=== PATIENT | female | born 1965 | race African-American/Black ===

== ENCOUNTER 2017-07-15 23:09 | Inpatient (IN) | payer OTHER ==
[~2017-07-15] VITALS: Ht 172.7 cm; Wt 164.1 kg
[~2017-07-15 23:09] MED LIST: ALBU8.5H IH; ASPI-556 PO; ATOR20TA86 PO; CARV12 PO; COMBIH IH; FLUT1DIS IH; HYDR2TAB5 PO; INSLAN SQ; INSNOV SQ; IPRAHFA IH; LISI-662 PO; NITR0.4T SL; RANO500T3 PO
[2017-07-15 23:42] LABS: GLUCOSE,POINT OF CARE 262 MG/DL (70-110)
[2017-07-15 23:46] LABS: BASOPHILS % (AUTO) 0.4 % (0.0-2.0); EOSINOPHILS % (AUTO) 2.8 % (1.0-6.0); HEMATOCRIT 35.2 % (36-46); HEMOGLOBIN 11.5 g/dL (12.0-16.0); LYMPHOCYTES # (AUTO) 1.2 K/uL (1.0-4.8); LYMPHOCYTES % (AUTO) 9.8 % (22.0-44.0); MEAN CORPUSCULAR HEMOGLOBIN 24.2 pg (26.0-34.0); MEAN CORPUSCULAR HGB CONC 32.7 G/dL (31.0-37.0); MEAN CORPUSCULAR VOLUME 74 fL (80-100); MONOCYTES # (AUTO) 0.9 K/uL (0.1-1.0); MONOCYTES % (AUTO) 7.5 % (2.0-9.0); NEUTROPHILS # (AUTO) 9.6 K/uL (1.8-7.7); NEUTROPHILS % (AUTO) 79.5 % (40.0-70.0); PLATELET COUNT (AUTO) 342 K/uL (150-450); RED BLOOD CELL COUNT(AUTO) 4.75 MIL/uL (4.00-5.20); RED CELL DISTRIBUTION WIDTH 17.1 % (11.5-14.5); WHITE BLOOD COUNT (AUTO) 12.1 K/uL (4.5-11.0)
[2017-07-15 23:56] LABS: ANION GAP 9 mmol/L (8-16); CALCIUM, TOTAL 9.6 mg/dL (8.8-10.5); CARBON DIOXIDE 29 mmol/L (22-29); CHLORIDE 104 mmol/L (98-107); CREATININE 1.47 mg/dL (0.60-1.30); GLOMERULAR FILTR. RATE CALC 45 mL/min (>60); POTASSIUM 3.9 mmol/L (3.5-5.1); SODIUM SERUM 142 mmol/L (136-145); UREA NITROGEN, BLOOD 19 mg/dL (7-18)
[2017-07-16] MEDS ORDERED: NITROGLYCERIN 2% (1 GM=INCH) PACKET TP ONE
[2017-07-16] MEDS ORDERED: HYDROmorphone 2 MG/ML SYRINGE IVP ONE
[2017-07-16] MEDS ORDERED: ASPIRIN 81 MG CHEWABLE TABLET PO ONE
[2017-07-16 00:02] LABS: ALANINE AMINOTRANSFERASE 14 U/L (12-78); ALBUMIN 2.9 g/dL (3.4-5.0); ASPARTATE AMINOTRANSFERASE 5 U/L (15-37); BILIRUBIN,TOTAL 0.2 mg/dL (0.1-1.0); CREATINE KINASE, TOTAL 66 U/L (26-192); TOTAL PROTEIN, SERUM 7.1 g/dL (6.4-8.2)
[2017-07-16 00:05] LABS: B-TYPE NATRIURETIC PEPTIDE 152 pg/mL (0-100)
[2017-07-16 00:06] LABS: PROTHROMBIN TIME 10.5 SEC (9.4-11.6)
[2017-07-16 01:09] LABS: APPEARANCE,URINE CLEAR (CLEAR); GLUCOSE, URINE (UA) >=1000 mg/dL (NEGATIVE); KETONES,URINE NEGATIVE (NEGATIVE); LEUKOCYTE ESTERASE ,URINE NEGATIVE (NEGATIVE); OCCULT BLOOD,URINE NEGATIVE (NEGATIVE); PROTEIN,URINE TRACE (NEGATIVE)
[2017-07-16 01:11] LABS: ADD UA MICROSCOPIC YES
[2017-07-16] MEDS ORDERED: ONDANSETRON HCL 4 MG/2 ML VIAL IVP PRN (01:15)
[2017-07-16] MEDS ORDERED: 0.9% SODIUM CHLORIDE 10 ML SYRINGE IVP PRN (01:15)
[2017-07-16] MEDS ORDERED: ACETAMINOPHEN 325 MG TABLET PO PRN ×2 (01:15→10:15)
[2017-07-16 01:23] LABS: RBC,URINE 0-2 /HPF (0-2); SQUAMOUS EPITHELIAL CELL,UR Few /LPF (None Seen); WBC,URINE 0-2 /HPF (0-5)
[2017-07-16 02:28] VITALS: BP 134/81
[2017-07-16] MEDS ORDERED: INSLAN SQ (02:42)
[2017-07-16] MEDS ORDERED: ATOR40TA28 PO (02:43)
[2017-07-16] MEDS ORDERED: ATOR20TA86 PO (02:43)
[2017-07-16] MEDS ORDERED: HYDROmorphone 2 MG/ML SYRINGE IVP PRN (03:30)
[2017-07-16] MEDS ORDERED: DEXTROSE 50%-WATER 25 GM/50 ML SYRINGE IVP PRN (03:30)
[2017-07-16] MEDS: HYDROmorphone 2 MG/ML SYRINGE IVP PRN ×5 (03:55→22:14)
[2017-07-16 04:30] LABS: RBC MORPHOLOGY COMMENT ABNORMAL RBC MORPH
[2017-07-16 05:06] VITALS: BP 130/84
[2017-07-16] MEDS: INSULIN ASPART 100 UNITS/ML SQ PRN ×4 (06:29→20:39)
[2017-07-16 07:46] VITALS: BP 126/79
[2017-07-16] MEDS: INSULIN GLARGINE,HUM.REC.ANLOG 100 UNITS/ML SQ SCH ×2 (08:20→20:38)
[2017-07-16] MEDS ORDERED: ALBUTEROL SULFATE 2.5 MG/0.5 ML NEB SOLUTION NEB PRN (10:15)
[2017-07-16] MEDS ORDERED: MAGNESIUM HYDROXIDE SUSPENSION 30 ML UDCUP PO PRN (10:15)
[2017-07-16] MEDS ORDERED: BISACODYL 10 MG RECTAL RECTAL SUPPOSITORY PR PRN (10:15)
[2017-07-16 10:27] LABS: GLUCOSE COMMENT 1 Received Meds; GLUCOSE,POINT OF CARE 311 MG/DL (70-110)
[2017-07-16 11:46] VITALS: BP 145/89
[2017-07-16] MEDS: TICAGRELOR 90 MG TABLET PO SCH ×2 (12:09→20:36)
[2017-07-16] MEDS: CARVEDILOL 6.25 MG TABLET PO SCH ×2 (12:09→20:36)
[2017-07-16 13:57] LABS: GLUCOSE COMMENT 1 Received Meds; GLUCOSE,POINT OF CARE 340 MG/DL (70-110)
[2017-07-16 15:33] VITALS: BP 101/59
[2017-07-16 20:33] VITALS: BP 124/78
[2017-07-16] MEDS: DOCUSATE SODIUM 100 MG CAPSULE PO SCH (20:36)
[2017-07-16] MEDS: HEPARIN SODIUM,PORCINE 5,000 UNITS/ML VIAL SQ SCH (20:36)
[2017-07-16] MEDS ORDERED: ATORVASTATIN CALCIUM 40 MG TABLET PO SCH (21:00)
[2017-07-17] MEDS ORDERED: 0.9% SODIUM CHLORIDE 5 ML NEB SOLUTION NEB ONE (00:50)
[2017-07-17 00:54] VITALS: BP 118/74
[2017-07-17 02:27] LABS: GLUCOSE COMMENT 1 Received Meds; GLUCOSE,POINT OF CARE 267 MG/DL (70-110)
[2017-07-17 02:32] LABS: GLUCOSE COMMENT 1 Received Meds; GLUCOSE,POINT OF CARE 256 MG/DL (70-110)
[2017-07-17] MEDS: HYDROmorphone 2 MG/ML SYRINGE IVP PRN ×3 (03:15→12:47)
[2017-07-17] MEDS: INSULIN ASPART 100 UNITS/ML SQ PRN ×2 (06:02→12:08)
[2017-07-17 06:42] LABS: BASOPHILS % (AUTO) 0.3 % (0.0-2.0); HEMATOCRIT 35.5 % (36-46); HEMOGLOBIN 11.5 g/dL (12.0-16.0); LYMPHOCYTES # (AUTO) 1.2 K/uL (1.0-4.8); LYMPHOCYTES % (AUTO) 9.6 % (22.0-44.0); MEAN CORPUSCULAR HEMOGLOBIN 24.2 pg (26.0-34.0); MEAN CORPUSCULAR HGB CONC 32.5 G/dL (31.0-37.0); MEAN CORPUSCULAR VOLUME 75 fL (80-100); MONOCYTES # (AUTO) 0.6 K/uL (0.1-1.0); MONOCYTES % (AUTO) 4.5 % (2.0-9.0); NEUTROPHILS # (AUTO) 10.6 K/uL (1.8-7.7); NEUTROPHILS % (AUTO) 82.6 % (40.0-70.0); PLATELET COUNT (AUTO) 347 K/uL (150-450); RED BLOOD CELL COUNT(AUTO) 4.75 MIL/uL (4.00-5.20); RED CELL DISTRIBUTION WIDTH 18.1 % (11.5-14.5); WHITE BLOOD COUNT (AUTO) 12.9 K/uL (4.5-11.0)
[2017-07-17 06:49] LABS: CALCIUM, TOTAL 9.3 mg/dL (8.8-10.5); CREATININE 1.38 mg/dL (0.60-1.30); POTASSIUM 4.2 mmol/L (3.5-5.1)
[2017-07-17 07:21] VITALS: BP 101/60
[2017-07-17] MEDS: HEPARIN SODIUM,PORCINE 5,000 UNITS/ML VIAL SQ SCH (08:01)
[2017-07-17] MEDS: INSULIN GLARGINE,HUM.REC.ANLOG 100 UNITS/ML SQ SCH (08:02)
[2017-07-17] MEDS: DOCUSATE SODIUM 100 MG CAPSULE PO SCH (08:11)
[2017-07-17] MEDS: TICAGRELOR 90 MG TABLET PO SCH (08:13)
[2017-07-17 08:23] LABS: RBC MORPHOLOGY COMMENT ABNORMAL RBC MORPH
[2017-07-17] MEDS ORDERED: LISINOPRIL 5 MG TABLET PO SCH (09:00)
[2017-07-17] MEDS ORDERED: FUROSEMIDE 40 MG TABLET PO SCH (09:00)
[2017-07-17] MEDS ORDERED: PANTOPRAZOLE SODIUM 40 MG DR TABLET PO SCH (09:00)
[2017-07-17] MEDS ORDERED: ASPIRIN 81 MG CHEWABLE TABLET PO SCH (09:00)
[2017-07-17] MEDS: CARVEDILOL 6.25 MG TABLET PO SCH (09:40)
[2017-07-17 09:43] VITALS: BP 111/69
[2017-07-17] MEDS ORDERED: CARV25 PO (10:39)
[2017-07-17 11:15] VITALS: BP 122/81
[2017-07-17 13:45] VITALS: BP 130/74
[2017-07-17 16:27] LABS: GLUCOSE COMMENT 1 Received Meds; GLUCOSE,POINT OF CARE 196 MG/DL (70-110)
[2017-07-17 16:32] LABS: GLUCOSE COMMENT 1 Received Meds; GLUCOSE,POINT OF CARE 208 MG/DL (70-110)
[2017-07-17] MEDS ORDERED: OXYGEN THERAPY IH SCH (20:00)
== END 2017-07-17 15:15 | disposition home or self-care (01) | DRG 303 ==
LOC: EMS 23:10 → 5S 07-16 01:10
PROVIDERS: ADMIT Internal Medicine; ATTEND Internal Medicine
DX: I25.10 Atherosclerotic heart disease of native coronary artery without angina pectoris (principal); E11.22 Type 2 diabetes mellitus with diabetic chronic kidney disease; E44.0 Moderate protein-calorie malnutrition; N18.3 Chronic kidney disease, stage 3 (moderate); Z68.43 Body mass index [BMI] 50.0-59.9, adult; R00.2 Palpitations; G47.30 Sleep apnea, unspecified; E66.01 Morbid (severe) obesity due to excess calories; G43.909 Migraine, unspecified, not intractable, without status migrainosus; E78.5 Hyperlipidemia, unspecified; I12.9 Hypertensive chronic kidney disease with stage 1 through stage 4 chronic kidney disease, or unspecified chronic kidney disease; Z95.5 Presence of coronary angioplasty implant and graft; J45.909 Unspecified asthma, uncomplicated; Z79.4 Long term (current) use of insulin; Z88.6 Allergy status to analgesic agent; Z88.8 Allergy status to other drugs, medicaments and biological substances; Z79.899 Other long term (current) drug therapy; Z79.82 Long term (current) use of aspirin
CPT/HCPCS: 82962; 93005; 93306; 94640; 96374; 99285; J1170; J1644; J1815

== ENCOUNTER 2017-08-28 18:30 | Inpatient (IN) | payer OTHER ==
[~2017-08-28] VITALS: Ht 175.3 cm; Wt 161.1 kg
[~2017-08-28 18:30] MED LIST changes: -ALBU8.5H IH; +ALBU8.5H8 IH; -ATOR20TA86 PO; +ATOR40TA28 PO; -CARV12 PO; +CARV25 PO; -COMBIH IH; -HYDR2TAB5 PO; -IPRAHFA IH
[2017-08-28 18:47] LABS: GLUCOSE,POINT OF CARE 256 MG/DL (70-110)
[2017-08-28] MEDS ORDERED: KETOROLAC TROMETHAMINE 30 MG/ML VIAL IVP ONE (19:15)
[2017-08-28 19:50] LABS: BASOPHILS % (AUTO) 0.5 % (0.0-2.0); HEMATOCRIT 35.9 % (36-46); HEMOGLOBIN 11.6 g/dL (12.0-16.0); LYMPHOCYTES # (AUTO) 1.2 K/uL (1.0-4.8); LYMPHOCYTES % (AUTO) 10.6 % (22.0-44.0); MEAN CORPUSCULAR HGB CONC 32.3 G/dL (31.0-37.0); MEAN CORPUSCULAR VOLUME 74 fL (80-100); MONOCYTES # (AUTO) 0.5 K/uL (0.1-1.0); MONOCYTES % (AUTO) 4.8 % (2.0-9.0); NEUTROPHILS % (AUTO) 82.1 % (40.0-70.0); PLATELET COUNT (AUTO) 328 K/uL (150-450); RED BLOOD CELL COUNT(AUTO) 4.85 MIL/uL (4.00-5.20); RED CELL DISTRIBUTION WIDTH 19.7 % (11.5-14.5); WHITE BLOOD COUNT (AUTO) 10.9 K/uL (4.5-11.0)
[2017-08-28 19:51] LABS: ANION GAP 7 mmol/L (8-16); CALCIUM, TOTAL 8.8 mg/dL (8.8-10.5); CARBON DIOXIDE 29 mmol/L (22-29); CHLORIDE 101 mmol/L (98-107); CREATININE 1.31 mg/dL (0.60-1.30); GLOMERULAR FILTR. RATE CALC 52 mL/min (>60); POTASSIUM 3.9 mmol/L (3.5-5.1); SODIUM SERUM 137 mmol/L (136-145); UREA NITROGEN, BLOOD 12 mg/dL (7-18)
[2017-08-28 20:10] LABS: B-TYPE NATRIURETIC PEPTIDE 119 pg/mL (0-100)
[2017-08-28 20:15] LABS: ALANINE AMINOTRANSFERASE 20 U/L (12-78); ALBUMIN 3.1 g/dL (3.4-5.0); ASPARTATE AMINOTRANSFERASE 12 U/L (15-37); BILIRUBIN,TOTAL 0.3 mg/dL (0.1-1.0); CREATINE KINASE, TOTAL 101 U/L (26-192); TOTAL PROTEIN, SERUM 7.4 g/dL (6.4-8.2)
[2017-08-28] MEDS ORDERED: ACETAMINOPHEN 1000 MG/ISO-OSM 100 ML IV ONE (21:00)
[2017-08-28] MEDS ORDERED: ONDANSETRON HCL 4 MG/2 ML VIAL IVP PRN ×2 (21:00→21:15)
[2017-08-28] MEDS ORDERED: ACETAMINOPHEN 325 MG TABLET PO PRN ×2 (21:00→21:15)
[2017-08-28 21:03] LABS: RBC MORPHOLOGY COMMENT ABNORMAL RBC MORPH
[2017-08-28] MEDS ORDERED: DEXTROSE 50%-WATER 25 GM/50 ML SYRINGE IVP PRN (21:15)
[2017-08-28] MEDS ORDERED: BISACODYL 10 MG RECTAL RECTAL SUPPOSITORY PR PRN (21:15)
[2017-08-28] MEDS ORDERED: ALBUTEROL SULFATE 2.5 MG/0.5 ML NEB SOLUTION NEB PRN (21:15)
[2017-08-28] MEDS ORDERED: NITROGLYCERIN 0.4 MG SUBLINGUAL TABLET #25 SL PRN (21:15)
[2017-08-28] MEDS ORDERED: ZOLPIDEM TARTRATE 5 MG TABLET PO PRN (21:15)
[2017-08-28] MEDS ORDERED: IPRATROPIUM BROMIDE 0.5 MG/2.5 ML NEB SOLUTION NEB PRN (21:15)
[2017-08-28] MEDS ORDERED: MAGNESIUM HYDROXIDE SUSPENSION 30 ML UDCUP PO PRN (21:15)
[2017-08-28 22:39] VITALS: BP 127/77
[2017-08-29 04:39] VITALS: BP 124/79
[2017-08-29] MEDS: HYDROCODONE/ACETAMINOPHEN 5-325 MG TABLET PO PRN ×3 (06:00→23:32)
[2017-08-29 06:25] LABS: BASOPHILS % (AUTO) 0.2 % (0.0-2.0); EOSINOPHILS % (AUTO) 2.5 % (1.0-6.0); HEMATOCRIT 33.5 % (36-46); HEMOGLOBIN 10.9 g/dL (12.0-16.0); LYMPHOCYTES # (AUTO) 1.1 K/uL (1.0-4.8); LYMPHOCYTES % (AUTO) 12.4 % (22.0-44.0); MEAN CORPUSCULAR HEMOGLOBIN 24.2 pg (26.0-34.0); MEAN CORPUSCULAR HGB CONC 32.4 G/dL (31.0-37.0); MEAN CORPUSCULAR VOLUME 75 fL (80-100); MONOCYTES # (AUTO) 0.6 K/uL (0.1-1.0); NEUTROPHILS # (AUTO) 7.3 K/uL (1.8-7.7); NEUTROPHILS % (AUTO) 78.9 % (40.0-70.0); PLATELET COUNT (AUTO) 289 K/uL (150-450); RED BLOOD CELL COUNT(AUTO) 4.48 MIL/uL (4.00-5.20); RED CELL DISTRIBUTION WIDTH 19.7 % (11.5-14.5); WHITE BLOOD COUNT (AUTO) 9.2 K/uL (4.5-11.0)
[2017-08-29 06:49] LABS: ALBUMIN 2.7 g/dL (3.4-5.0); BILIRUBIN,TOTAL 0.2 mg/dL (0.1-1.0); CALCIUM, TOTAL 8.5 mg/dL (8.8-10.5); CREATININE 1.61 mg/dL (0.60-1.30); MAGNESIUM 1.8 mg/dL (1.80-2.40); PHOSPHORUS 4.5 mg/dL (2.5-4.9); POTASSIUM 3.9 mmol/L (3.5-5.1); TOTAL PROTEIN, SERUM 6.7 g/dL (6.4-8.2)
[2017-08-29 06:51] LABS: HEMOGLOBIN A1C 10.9 % (4.5-6.2)
[2017-08-29] MEDS: INSULIN ASPART 100 UNITS/ML SQ PRN ×4 (06:55→20:23)
[2017-08-29 07:40] VITALS: BP 148/85
[2017-08-29] MEDS: ASPIRIN 81 MG EC TABLET PO SCH (09:08)
[2017-08-29] MEDS: PANTOPRAZOLE SODIUM 40 MG DR TABLET PO SCH (09:08)
[2017-08-29] MEDS: LISINOPRIL 20 MG TABLET PO SCH (09:08)
[2017-08-29] MEDS: CARVEDILOL 25 MG TABLET PO SCH ×2 (09:08→20:10)
[2017-08-29] MEDS: HEPARIN SODIUM,PORCINE 5,000 UNITS/ML VIAL SQ SCH ×2 (09:09→20:11)
[2017-08-29] MEDS: RANOLAZINE 500 MG SR TABLET PO SCH ×2 (09:09→20:10)
[2017-08-29] MEDS: INSULIN DETEMIR 100 UNITS/ML SQ SCH ×2 (09:11→20:17)
[2017-08-29 09:58] LABS: GLUCOSE COMMENT 1 Received Meds; GLUCOSE,POINT OF CARE 459 MG/DL (70-110)
[2017-08-29 10:18] LABS: RBC MORPHOLOGY COMMENT ABNORMAL RBC MORPH
[2017-08-29 11:49] VITALS: BP 126/74
[2017-08-29 13:28] LABS: GLUCOSE,POINT OF CARE 389 MG/DL (70-110)
[2017-08-29 15:41] VITALS: BP 128/74
[2017-08-29] MEDS: MethylPREDNISolone SOD SUCC 125 MG/2 ML VIAL IVP SCH ×2 (18:28→23:32)
[2017-08-29 19:47] VITALS: BP 142/90
[2017-08-29] MEDS: HYDROmorphone 2 MG/ML SYRINGE IVP PRN (20:12)
[2017-08-29] MEDS ORDERED: ATORVASTATIN CALCIUM 40 MG TABLET PO SCH (21:00)
[2017-08-29] MEDS: ALBUTEROL SULFATE 2.5 MG/0.5 ML NEB SOLUTION NEB SCH (21:05)
[2017-08-29] MEDS ORDERED: 0.9% SODIUM CHLORIDE 5 ML NEB SOLUTION NEB ONE (21:07)
[2017-08-29 23:23] VITALS: BP 136/80
[2017-08-30] MEDS ORDERED: 0.9% SODIUM CHLORIDE 5 ML NEB SOLUTION NEB ONE ×4 (00:18→15:16)
[2017-08-30] MEDS: ALBUTEROL SULFATE 2.5 MG/0.5 ML NEB SOLUTION NEB SCH ×4 (00:21→11:48)
[2017-08-30] MEDS: HYDROmorphone 2 MG/ML SYRINGE IVP PRN ×3 (02:03→14:36)
[2017-08-30 02:17] LABS: GLUCOSE COMMENT 1 Received Meds; GLUCOSE,POINT OF CARE 246 MG/DL (70-110)
[2017-08-30 02:17] LABS: GLUCOSE COMMENT 1 Received Meds; GLUCOSE,POINT OF CARE 276 MG/DL (70-110)
[2017-08-30 04:29] VITALS: BP 137/90
[2017-08-30] MEDS: HYDROCODONE/ACETAMINOPHEN 5-325 MG TABLET PO PRN (06:25)
[2017-08-30] MEDS: MethylPREDNISolone SOD SUCC 125 MG/2 ML VIAL IVP SCH ×2 (06:25→12:05)
[2017-08-30] MEDS: INSULIN ASPART 100 UNITS/ML SQ PRN ×2 (06:32→11:47)
[2017-08-30 07:18] VITALS: BP 132/76
[2017-08-30] MEDS ORDERED: OXYGEN THERAPY IH SCH (08:00)
[2017-08-30] MEDS ORDERED: TICAGRELOR 90 MG TABLET PO SCH (09:15)
[2017-08-30] MEDS ORDERED: GABAPENTIN 300 MG CAPSULE PO SCH (09:15)
[2017-08-30] MEDS: PANTOPRAZOLE SODIUM 40 MG DR TABLET PO SCH (09:19)
[2017-08-30] MEDS: RANOLAZINE 500 MG SR TABLET PO SCH (09:19)
[2017-08-30] MEDS: ASPIRIN 81 MG EC TABLET PO SCH (09:19)
[2017-08-30] MEDS: LISINOPRIL 20 MG TABLET PO SCH (09:19)
[2017-08-30] MEDS: CARVEDILOL 25 MG TABLET PO SCH (09:19)
[2017-08-30] MEDS: INSULIN DETEMIR 100 UNITS/ML SQ SCH (09:21)
[2017-08-30 11:31] VITALS: BP 137/86
[2017-08-30] MEDS ORDERED: PredniSONE 20 MG TABLET PO ONE (15:00)
[2017-08-30] MEDS ORDERED: PRED20 PO (15:06)
[2017-08-30 20:12] LABS: GLUCOSE COMMENT 1 Doctor Notified; GLUCOSE COMMENT 2 Received Meds; GLUCOSE,POINT OF CARE 507 MG/DL (70-110)
[2017-08-30 20:28] LABS: GLUCOSE COMMENT 1 Received Meds; GLUCOSE,POINT OF CARE 491 MG/DL (70-110)
[2017-08-30 20:28] LABS: GLUCOSE COMMENT 1 Received Meds; GLUCOSE,POINT OF CARE 317 MG/DL (70-110)
== END 2017-08-30 15:30 | disposition home or self-care (01) | DRG 74 ==
LOC: EMS 18:31 → 5S 21:00 → 5N 22:30
PROVIDERS: ADMIT Internal Medicine; ATTEND Internal Medicine
DX: G90.8 Other disorders of autonomic nervous system (principal); E11.65 Type 2 diabetes mellitus with hyperglycemia; I10 Essential (primary) hypertension; Z68.43 Body mass index [BMI] 50.0-59.9, adult; R55 Syncope and collapse; W19.XXXA Unspecified fall, initial encounter; I25.10 Atherosclerotic heart disease of native coronary artery without angina pectoris; R07.9 Chest pain, unspecified; E66.01 Morbid (severe) obesity due to excess calories; J44.9 Chronic obstructive pulmonary disease, unspecified; G43.909 Migraine, unspecified, not intractable, without status migrainosus; M25.512 Pain in left shoulder; Z88.5 Allergy status to narcotic agent; Z88.8 Allergy status to other drugs, medicaments and biological substances; Z79.4 Long term (current) use of insulin; Z79.899 Other long term (current) drug therapy; Z79.82 Long term (current) use of aspirin; Y93.89 Activity, other specified; Y92.89 Other specified places as the place of occurrence of the external cause; Y99.8 Other external cause status; S46.912A Strain of unspecified muscle, fascia and tendon at shoulder and upper arm level, left arm, initial encounter
CPT/HCPCS: 70450; 82962; 83036; 83735; 84100; 87081; 93005; 93306; 93880; 94640; 96365; 96375; 99285; J0131; J1170; J1644; J1885; J2930

== ENCOUNTER 2017-09-11 19:25 | Inpatient (IN) | payer OTHER ==
[~2017-09-11] VITALS: Ht 172.7 cm; Wt 158.1 kg
[~2017-09-11 19:25] MED LIST changes: +PRED20 PO
[2017-09-11 20:08] LABS: BASOPHILS # (AUTO) 0.03 K/uL (0.00-0.20); BASOPHILS % (AUTO) 0.2 % (0.0-2.0); EOSINOPHILS # (AUTO) 0.21 K/uL (0.00-0.70); EOSINOPHILS % (AUTO) 1.43 % (1.0-6.0); HEMATOCRIT 36.6 % (36-46); HEMOGLOBIN 11.8 g/dL (12.0-16.0); LYMPHOCYTES # (AUTO) 1.6 K/uL (1.0-4.8); LYMPHOCYTES % (AUTO) 11.3 % (22.0-44.0); MEAN CORPUSCULAR HEMOGLOBIN 24.4 pg (26.0-34.0); MEAN CORPUSCULAR HGB CONC 32.4 G/dL (31.0-37.0); MEAN CORPUSCULAR VOLUME 75 fL (80-100); MONOCYTES # (AUTO) 0.7 K/uL (0.1-1.0); NEUTROPHILS # (AUTO) 11.8 K/uL (1.8-7.7); PLATELET COUNT (AUTO) 313 K/uL (150-450); RED BLOOD CELL COUNT(AUTO) 4.86 MIL/uL (4.00-5.20); RED CELL DISTRIBUTION WIDTH 21.7 % (11.5-14.5); WHITE BLOOD COUNT (AUTO) 14.4 K/uL (4.5-11.0)
[2017-09-11 20:18] LABS: ANION GAP 9 mmol/L (8-16); CALCIUM, TOTAL 9.4 mg/dL (8.8-10.5); CARBON DIOXIDE 27 mmol/L (22-29); CHLORIDE 102 mmol/L (98-107); CREATININE 1.47 mg/dL (0.60-1.30); GLOMERULAR FILTR. RATE CALC 45 mL/min (>60); POTASSIUM 3.7 mmol/L (3.5-5.1); SODIUM SERUM 138 mmol/L (136-145); UREA NITROGEN, BLOOD 16 mg/dL (7-18)
[2017-09-11] MEDS ORDERED: NITROGLYCERIN 2% (1 GM=INCH) PACKET TP ONE (20:30)
[2017-09-11] MEDS ORDERED: ASPIRIN 325 MG TABLET PO ONE (20:30)
[2017-09-11 20:36] LABS: B-TYPE NATRIURETIC PEPTIDE 71 pg/mL (0-100)
[2017-09-11 20:39] LABS: RBC MORPHOLOGY COMMENT ABNORMAL RBC MORPH
[2017-09-11 20:44] LABS: ALANINE AMINOTRANSFERASE 22 U/L (12-78); ALBUMIN 3.1 g/dL (3.4-5.0); ASPARTATE AMINOTRANSFERASE 17 U/L (15-37); BILIRUBIN,TOTAL 0.4 mg/dL (0.1-1.0); CREATINE KINASE, TOTAL 95 U/L (26-192); TOTAL PROTEIN, SERUM 7.3 g/dL (6.4-8.2)
[2017-09-11] MEDS ORDERED: ONDANSETRON HCL 4 MG/2 ML VIAL IVP ONE (22:00)
[2017-09-11] MEDS ORDERED: HYDROmorphone 2 MG/ML SYRINGE IVP ONE (22:00)
[2017-09-11] MEDS ORDERED: ONDANSETRON HCL 4 MG/2 ML VIAL IVP PRN ×2 (22:15→23:30)
[2017-09-11] MEDS ORDERED: ACETAMINOPHEN 325 MG TABLET PO PRN ×2 (22:15→23:30)
[2017-09-11] MEDS ORDERED: 0.9% SODIUM CHLORIDE 10 ML SYRINGE IVP PRN (22:15)
[2017-09-11 23:04] VITALS: BP 139/91
[2017-09-11] MEDS ORDERED: MAGNESIUM HYDROXIDE SUSPENSION 30 ML UDCUP PO PRN (23:30)
[2017-09-11] MEDS ORDERED: IPRATROPIUM BROMIDE 0.5 MG/2.5 ML NEB SOLUTION NEB PRN (23:30)
[2017-09-11] MEDS ORDERED: ZOLPIDEM TARTRATE 5 MG TABLET PO PRN (23:30)
[2017-09-11] MEDS ORDERED: DEXTROSE 50%-WATER 25 GM/50 ML SYRINGE IVP PRN (23:30)
[2017-09-11] MEDS ORDERED: ALBUTEROL SULFATE 2.5 MG/0.5 ML NEB SOLUTION NEB PRN (23:30)
[2017-09-11] MEDS ORDERED: BISACODYL 10 MG RECTAL RECTAL SUPPOSITORY PR PRN (23:30)
[2017-09-12] VITALS (8 sets, daily range): BP systolic 98–136; BP diastolic 57–87
[2017-09-12] MEDS: HYDROmorphone 2 MG/ML SYRINGE IVP PRN ×5 (00:38→20:06)
[2017-09-12] MEDS: NITROGLYCERIN 2% (1 GM=INCH) PACKET TP SCH ×4 (00:40→18:19)
[2017-09-12 06:33] LABS: GLUCOSE COMMENT 1 Received Meds; GLUCOSE,POINT OF CARE 284 MG/DL (70-110)
[2017-09-12 06:41] LABS: BILIRUBIN,TOTAL 0.3 mg/dL (0.1-1.0); CHOL/HDL RATIO 4.5 (3.9-5.7); CREATININE 1.64 mg/dL (0.60-1.30); PHOSPHORUS 5.1 mg/dL (2.5-4.9)
[2017-09-12 06:44] LABS: HEMOGLOBIN A1C 11.8 % (4.5-6.2)
[2017-09-12] MEDS: INSULIN ASPART 100 UNITS/ML SQ PRN ×4 (06:48→21:23)
[2017-09-12 07:10] LABS: THYROID STIMULATING HORMONE 3.99 uIU/mL (0.36-3.74)
[2017-09-12] MEDS ORDERED: INSULIN ASPART 100 UNITS/ML SQ SCH (07:30)
[2017-09-12 07:59] LABS: BASOPHILS % (AUTO) 0.1 % (0.0-2.0); EOSINOPHILS % (AUTO) 1.6 % (1.0-6.0); HEMATOCRIT 36.3 % (36-46); HEMOGLOBIN 11.7 g/dL (12.0-16.0); LYMPHOCYTES # (AUTO) 1.3 K/uL (1.0-4.8); LYMPHOCYTES % (AUTO) 12.3 % (22.0-44.0); MEAN CORPUSCULAR HEMOGLOBIN 24.5 pg (26.0-34.0); MEAN CORPUSCULAR HGB CONC 32.2 G/dL (31.0-37.0); MEAN CORPUSCULAR VOLUME 76 fL (80-100); MONOCYTES # (AUTO) 0.7 K/uL (0.1-1.0); MONOCYTES % (AUTO) 6.7 % (2.0-9.0); NEUTROPHILS # (AUTO) 8.7 K/uL (1.8-7.7); NEUTROPHILS % (AUTO) 79.3 % (40.0-70.0); PLATELET COUNT (AUTO) 322 K/uL (150-450); RED BLOOD CELL COUNT(AUTO) 4.78 MIL/uL (4.00-5.20); RED CELL DISTRIBUTION WIDTH 21.3 % (11.5-14.5)
[2017-09-12] MEDS: HEPARIN SODIUM,PORCINE 5,000 UNITS/ML VIAL SQ SCH ×2 (08:35→21:18)
[2017-09-12] MEDS: TICAGRELOR 90 MG TABLET PO SCH ×2 (08:36→21:17)
[2017-09-12] MEDS: CARVEDILOL 25 MG TABLET PO SCH ×2 (08:36→21:17)
[2017-09-12] MEDS: PANTOPRAZOLE SODIUM 40 MG DR TABLET PO SCH (08:36)
[2017-09-12] MEDS: ASPIRIN 81 MG EC TABLET PO SCH (08:37)
[2017-09-12] MEDS: RANOLAZINE 500 MG SR TABLET PO SCH ×2 (08:37→21:17)
[2017-09-12] MEDS: INSULIN DETEMIR 100 UNITS/ML SQ SCH ×2 (08:41→21:24)
[2017-09-12] MEDS ORDERED: LISINOPRIL 20 MG TABLET PO SCH (09:00)
[2017-09-12 10:07] LABS: RBC MORPHOLOGY COMMENT ABNORMAL RBC MORPH
[2017-09-12] MEDS ORDERED: PERFLUTREN PROTEIN-A MICROSPHERES 0.22 MG/ML 3 ML VIAL IVP ONE ×2 (14:30→16:31)
[2017-09-12] MEDS: ALBUTEROL SULFATE 2.5 MG/0.5 ML NEB SOLUTION NEB PRN ×2 (15:16→19:25)
[2017-09-12] MEDS: IPRATROPIUM BROMIDE 0.5 MG/2.5 ML NEB SOLUTION NEB PRN (19:25)
[2017-09-12] MEDS: OXYGEN THERAPY IH SCH (20:06)
[2017-09-12] MEDS: ATORVASTATIN CALCIUM 40 MG TABLET PO SCH (21:21)
[2017-09-13] VITALS (8 sets, daily range): BP systolic 100–122; BP diastolic 55–65
[2017-09-13 00:08] LABS: GLUCOSE COMMENT 1 Received Meds; GLUCOSE,POINT OF CARE 323 MG/DL (70-110)
[2017-09-13 00:13] LABS: GLUCOSE COMMENT 1 Received Meds; GLUCOSE,POINT OF CARE 228 MG/DL (70-110)
[2017-09-13 00:13] LABS: GLUCOSE COMMENT 1 Received Meds; GLUCOSE,POINT OF CARE 318 MG/DL (70-110)
[2017-09-13 00:14] LABS: GLUCOSE COMMENT 1 Received Meds; GLUCOSE,POINT OF CARE 186 MG/DL (70-110)
[2017-09-13] MEDS: NITROGLYCERIN 2% (1 GM=INCH) PACKET TP SCH ×5 (00:31→23:47)
[2017-09-13 00:37] LABS: GLUCOSE COMMENT 1 Received Meds; GLUCOSE,POINT OF CARE 286 MG/DL (70-110)
[2017-09-13] MEDS: IPRATROPIUM BROMIDE 0.5 MG/2.5 ML NEB SOLUTION NEB PRN (00:44)
[2017-09-13] MEDS: ALBUTEROL SULFATE 2.5 MG/0.5 ML NEB SOLUTION NEB PRN (00:44)
[2017-09-13] MEDS: HYDROmorphone 2 MG/ML SYRINGE IVP PRN ×5 (03:42→21:33)
[2017-09-13] MEDS: INSULIN ASPART 100 UNITS/ML SQ PRN ×4 (06:30→21:39)
[2017-09-13] MEDS: ASPIRIN 81 MG EC TABLET PO SCH (08:17)
[2017-09-13] MEDS: OXYGEN THERAPY IH SCH ×2 (08:17→20:44)
[2017-09-13] MEDS: PANTOPRAZOLE SODIUM 40 MG DR TABLET PO SCH (08:18)
[2017-09-13] MEDS: TICAGRELOR 90 MG TABLET PO SCH ×2 (08:18→20:43)
[2017-09-13] MEDS: RANOLAZINE 500 MG SR TABLET PO SCH ×2 (08:18→20:43)
[2017-09-13] MEDS: INSULIN DETEMIR 100 UNITS/ML SQ SCH ×2 (08:19→21:38)
[2017-09-13] MEDS: HEPARIN SODIUM,PORCINE 5,000 UNITS/ML VIAL SQ SCH ×2 (08:19→20:43)
[2017-09-13] MEDS: CARVEDILOL 25 MG TABLET PO SCH ×2 (09:42→20:42)
[2017-09-13] MEDS ORDERED: SESTAMIBI TC99M/UD ISOTOPE 1 EA INJ INJ ONE (12:00)
[2017-09-13 13:47] LABS: GLUCOSE COMMENT 1 Received Meds; GLUCOSE,POINT OF CARE 237 MG/DL (70-110)
[2017-09-13 15:22] LABS: APPEARANCE,URINE CLOUDY (CLEAR); GLUCOSE, URINE (UA) NEGATIVE (NEGATIVE); KETONES,URINE NEGATIVE (NEGATIVE); LEUKOCYTE ESTERASE ,URINE NEGATIVE (NEGATIVE); OCCULT BLOOD,URINE NEGATIVE (NEGATIVE); PROTEIN,URINE NEGATIVE (NEGATIVE)
[2017-09-13 15:23] LABS: ADD UA MICROSCOPIC NO
[2017-09-13] MEDS: MUPIROCIN CALCIUM 2% 22 GM OINTMENT NASAL SCH (20:42)
[2017-09-13] MEDS: ATORVASTATIN CALCIUM 40 MG TABLET PO SCH (20:43)
[2017-09-14] VITALS (7 sets, daily range): BP systolic 103–129; BP diastolic 59–68
[2017-09-14] MEDS: HYDROmorphone 2 MG/ML SYRINGE IVP PRN ×3 (02:48→10:41)
[2017-09-14 05:58] LABS: GLUCOSE COMMENT 1 Received Meds; GLUCOSE,POINT OF CARE 260 MG/DL (70-110)
[2017-09-14] MEDS: INSULIN ASPART 100 UNITS/ML SQ PRN ×3 (06:30→17:18)
[2017-09-14] MEDS: NITROGLYCERIN 2% (1 GM=INCH) PACKET TP SCH ×3 (06:37→17:15)
[2017-09-14] MEDS ORDERED: REGADENOSON 0.4 MG/5 ML PF SYRINGE IVP ONE ×2 (08:08→12:00)
[2017-09-14] MEDS ORDERED: AMINOPHYLLINE 25 MG/ML 10 ML VIAL IVP ONE (08:13)
[2017-09-14] MEDS ORDERED: SESTAMIBI TC99M/UD ISOTOPE 1 EA INJ INJ ONE (08:15)
[2017-09-14 08:40] LABS: ALBUMIN 2.9 g/dL (3.4-5.0); BILIRUBIN,TOTAL 0.4 mg/dL (0.1-1.0); CALCIUM, TOTAL 8.9 mg/dL (8.8-10.5); CREATININE 2.92 mg/dL (0.60-1.30); MAGNESIUM 2.3 mg/dL (1.80-2.40); POTASSIUM 4.9 mmol/L (3.5-5.1)
[2017-09-14] MEDS: ASPIRIN 81 MG EC TABLET PO SCH (08:40)
[2017-09-14] MEDS: HEPARIN SODIUM,PORCINE 5,000 UNITS/ML VIAL SQ SCH (08:41)
[2017-09-14] MEDS: RANOLAZINE 500 MG SR TABLET PO SCH (08:41)
[2017-09-14] MEDS: TICAGRELOR 90 MG TABLET PO SCH (08:41)
[2017-09-14] MEDS: CARVEDILOL 25 MG TABLET PO SCH (08:41)
[2017-09-14] MEDS: PANTOPRAZOLE SODIUM 40 MG DR TABLET PO SCH (08:41)
[2017-09-14 08:46] LABS: BASOPHILS % (AUTO) 0.2 % (0.0-2.0); EOSINOPHILS % (AUTO) 1.5 % (1.0-6.0); HEMATOCRIT 32.7 % (36-46); HEMOGLOBIN 10.7 g/dL (12.0-16.0); LYMPHOCYTES # (AUTO) 1.1 K/uL (1.0-4.8); LYMPHOCYTES % (AUTO) 9.2 % (22.0-44.0); MEAN CORPUSCULAR HGB CONC 32.8 G/dL (31.0-37.0); MEAN CORPUSCULAR VOLUME 76 fL (80-100); MONOCYTES # (AUTO) 0.7 K/uL (0.1-1.0); NEUTROPHILS % (AUTO) 83.1 % (40.0-70.0); PLATELET COUNT (AUTO) 295 K/uL (150-450); RED BLOOD CELL COUNT(AUTO) 4.28 MIL/uL (4.00-5.20); RED CELL DISTRIBUTION WIDTH 21.1 % (11.5-14.5)
[2017-09-14] MEDS: OXYGEN THERAPY IH SCH (10:07)
[2017-09-14] MEDS: MUPIROCIN CALCIUM 2% 22 GM OINTMENT NASAL SCH (10:09)
[2017-09-14] MEDS: INSULIN DETEMIR 100 UNITS/ML SQ SCH (10:09)
[2017-09-14 11:25] LABS: RBC MORPHOLOGY COMMENT ABNORMAL RBC MORPH
[2017-09-14 11:35] LABS: GLUCOSE COMMENT 1 Received Meds; GLUCOSE,POINT OF CARE 183 MG/DL (70-110)
[2017-09-14 11:35] LABS: GLUCOSE COMMENT 1 Received Meds; GLUCOSE,POINT OF CARE 208 MG/DL (70-110)
[2017-09-14 11:47] LABS: GLUCOSE COMMENT 1 Received Meds; GLUCOSE,POINT OF CARE 238 MG/DL (70-110)
[2017-09-14] MEDS ORDERED: AMINOPHYLLINE 25 MG/ML 10 ML VIAL ONE (12:00)
[2017-09-15 17:32] LABS: GLUCOSE COMMENT 1 Received Meds; GLUCOSE,POINT OF CARE 272 MG/DL (70-110)
[2017-09-16 20:13] LABS: GLUCOSE,POINT OF CARE 231 MG/DL (70-110)
[2017-09-16 20:13] LABS: GLUCOSE,POINT OF CARE 249 MG/DL (70-110)
== END 2017-09-14 20:30 | disposition home or self-care (01) | DRG 683 ==
LOC: EMS 19:27 → 5S 22:14
PROVIDERS: ADMIT Internal Medicine; ATTEND Internal Medicine
DX: N17.9 Acute kidney failure, unspecified (principal); I25.110 Atherosclerotic heart disease of native coronary artery with unstable angina pectoris; E11.22 Type 2 diabetes mellitus with diabetic chronic kidney disease; E44.0 Moderate protein-calorie malnutrition; I50.32 Chronic diastolic (congestive) heart failure; E11.65 Type 2 diabetes mellitus with hyperglycemia; E66.01 Morbid (severe) obesity due to excess calories; Z68.43 Body mass index [BMI] 50.0-59.9, adult; D64.9 Anemia, unspecified; J44.9 Chronic obstructive pulmonary disease, unspecified; I10 Essential (primary) hypertension; E78.5 Hyperlipidemia, unspecified; E55.9 Vitamin D deficiency, unspecified; G47.33 Obstructive sleep apnea (adult) (pediatric); I12.9 Hypertensive chronic kidney disease with stage 1 through stage 4 chronic kidney disease, or unspecified chronic kidney disease; I25.10 Atherosclerotic heart disease of native coronary artery without angina pectoris; N18.9 Chronic kidney disease, unspecified; Z79.4 Long term (current) use of insulin; I25.2 Old myocardial infarction; Z79.82 Long term (current) use of aspirin; Z95.5 Presence of coronary angioplasty implant and graft; Z22.322 Carrier or suspected carrier of Methicillin resistant Staphylococcus aureus; Z88.8 Allergy status to other drugs, medicaments and biological substances
CPT/HCPCS: 78452; 82306; 82962; 83036; 83735; 84100; 84443; 87081; 93005; 93017; 93306; 93308; 94640; 96374; 96375; 99285; A9500; J0280; J1170; J1644; J1815; J2405; J2785

== ENCOUNTER 2017-12-05 13:25 | Emergency (ER) | payer OTHER ==
[~2017-12-05] VITALS: Ht 172.7 cm; Wt 154.6 kg
[~2017-12-05 13:25] MED LIST changes: -PRED20 PO
[2017-12-05 13:47] LABS: GLUCOSE,POINT OF CARE 298 MG/DL (70-110)
[2017-12-05 17:18] VITALS: BP 156/77
[2017-12-05] MEDS ORDERED: CIPROFLOXACIN HCL 250 MG TABLET PO ONE (17:45)
[2017-12-05] MEDS ORDERED: HYDROCODONE/ACETAMINOPHEN 5-325 MG TABLET PO ONE (17:45)
[2017-12-05] MEDS ORDERED: PERTUSS(ACELL),DIPH,TET VAC/PF 0.5 ML VIAL IM ONE (17:45)
[2017-12-05] MEDS ORDERED: BACITRACIN 0.9 GM PACKET OINTMENT TP ONE (18:15)
== END 2017-12-05 18:39 | disposition home or self-care (01) ==
LOC: EMS 13:29
DX: S91.332A Puncture wound without foreign body, left foot, initial encounter (principal); I10 Essential (primary) hypertension; J45.909 Unspecified asthma, uncomplicated; G43.909 Migraine, unspecified, not intractable, without status migrainosus; I25.2 Old myocardial infarction; E11.9 Type 2 diabetes mellitus without complications; I25.10 Atherosclerotic heart disease of native coronary artery without angina pectoris; Z88.8 Allergy status to other drugs, medicaments and biological substances; W45.8XXA Other foreign body or object entering through skin, initial encounter; Y93.01 Activity, walking, marching and hiking; Y92.512 Supermarket, store or market as the place of occurrence of the external cause; Y99.8 Other external cause status
CPT/HCPCS: 82962; 90471; 90715; 99284

== ENCOUNTER 2018-01-08 09:35 | Day surgery (SDC) | payer OTHER ==
[~2018-01-08] VITALS: Ht 170.2 cm; Wt 159.1 kg
[~2018-01-08 09:35] MED LIST changes: +0.9% SODIUM CHLORIDE 10 ML SYRINGE IVP PRN; -CARV25 PO; -LISI-662 PO; +METOPROLOL TARTRATE 50 MG TABLET PO ONE
[2018-01-08] MEDS ORDERED: METOPROLOL TARTRATE 50 MG TABLET ONE (10:12)
[2018-01-08] MEDS ORDERED: TICA90TA PO (10:15)
[2018-01-08] MEDS ORDERED: INSLAN SQ ×2 (10:15)
[2018-01-08] MEDS ORDERED: FURO40 PO (10:15)
[2018-01-08] MEDS ORDERED: INSU100V SQ (10:15)
[2018-01-08] MEDS ORDERED: GABA-531 PO (10:15)
[2018-01-08] MEDS ORDERED: ADV250 IH (10:15)
[2018-01-08 10:25] LABS: CALCIUM, TOTAL 9.1 mg/dL (8.8-10.5); CREATININE 1.61 mg/dL (0.60-1.30); POTASSIUM 3.7 mmol/L (3.5-5.1)
[2018-01-08] MEDS ORDERED: METOPROLOL TARTRATE 5 MG/5 ML VIAL ONE ×5 (10:28→12:46)
[2018-01-08] MEDS ORDERED: NITROGLYCERIN 400 MCG/SUBLINGUAL SPRAY 4.9 GM BOTTLE SL ONE (10:28)
[2018-01-08] MEDS ORDERED: METOPROLOL TARTRATE 5 MG/5 ML VIAL IVP ONE ×5 (11:00→12:45)
[2018-01-08] MEDS ORDERED: 0.9% SODIUM CHLORIDE 10 ML SYRINGE IVP ONE ×3 (11:32→12:46)
[2018-01-08] MEDS ORDERED: ATOR20TA86 PO (11:38)
[2018-01-08] MEDS ORDERED: HYDROCODONE/ACETAMINOPHEN 10-325 MG TABLET PO ONE (12:45)
[2018-01-08] MEDS ORDERED: HYDROCODONE/ACETAMINOPHEN 10-325 MG TABLET ONE (12:48)
[2018-01-08] MEDS ORDERED: IOVERSOL 350 MG/ML 150 ML VIAL ONE (14:06)
== END 2018-01-08 15:45 | disposition home or self-care (01) ==
LOC: SURGERY 09:35 → EDSTATUS 11:00 → SURGERY 15:45
PROVIDERS: ATTEND Internal Medicine Cardiovascular Disease
DX: J98.09 Other diseases of bronchus, not elsewhere classified (principal); J98.11 Atelectasis; M47.814 Spondylosis without myelopathy or radiculopathy, thoracic region; I25.89 Other forms of chronic ischemic heart disease; I11.0 Hypertensive heart disease with heart failure; I50.22 Chronic systolic (congestive) heart failure; M17.0 Bilateral primary osteoarthritis of knee; M19.012 Primary osteoarthritis, left shoulder; M19.011 Primary osteoarthritis, right shoulder; I08.3 Combined rheumatic disorders of mitral, aortic and tricuspid valves; J44.9 Chronic obstructive pulmonary disease, unspecified; I25.10 Atherosclerotic heart disease of native coronary artery without angina pectoris; E11.9 Type 2 diabetes mellitus without complications; Z95.5 Presence of coronary angioplasty implant and graft; Z88.6 Allergy status to analgesic agent; Z88.8 Allergy status to other drugs, medicaments and biological substances; Z98.890 Other specified postprocedural states; Z79.4 Long term (current) use of insulin; Z79.01 Long term (current) use of anticoagulants; Z86.74 Personal history of sudden cardiac arrest; Z79.82 Long term (current) use of aspirin; Z79.899 Other long term (current) drug therapy
CPT/HCPCS: 36415; 75574; 80048; 93005; J3490; Q9967

== ENCOUNTER 2018-01-09 19:29 | Emergency (ER) | payer OTHER ==
[~2018-01-09] VITALS: Ht 172.7 cm; Wt 154.6 kg
[~2018-01-09 19:29] MED LIST changes: -0.9% SODIUM CHLORIDE 10 ML SYRINGE IVP PRN; +ADV250 IH; -ALBU8.5H8 IH; +ATOR20TA86 PO; -ATOR40TA28 PO; -FLUT1DIS IH; +FURO40 PO; +GABA-531 PO; -INSNOV SQ; +INSU100V SQ; -METOPROLOL TARTRATE 50 MG TABLET PO ONE; -NITR0.4T SL; -RANO500T3 PO; +TICA90TA PO
[2018-01-09 20:03] LABS: GLUCOSE,POINT OF CARE 206 MG/DL (70-110)
[2018-01-09] MEDS ORDERED: KETOROLAC TROMETHAMINE 60 MG/2 ML VIAL IM ONE (21:45)
[2018-01-09] MEDS ORDERED: HYDROCODONE/ACETAMINOPHEN 5-325 MG TABLET PO ONE (23:30)
[2018-01-09 23:48] VITALS: BP 133/81
== END 2018-01-09 23:52 | disposition home or self-care (01) ==
LOC: EMS 19:31
DX: S30.0XXA Contusion of lower back and pelvis, initial encounter (principal); M54.5 Low back pain; I25.2 Old myocardial infarction; E11.9 Type 2 diabetes mellitus without complications; J45.909 Unspecified asthma, uncomplicated; G43.909 Migraine, unspecified, not intractable, without status migrainosus; I10 Essential (primary) hypertension; Z88.8 Allergy status to other drugs, medicaments and biological substances; Z88.5 Allergy status to narcotic agent; Z79.4 Long term (current) use of insulin; X58.XXXA Exposure to other specified factors, initial encounter; Y93.89 Activity, other specified; Y92.89 Other specified places as the place of occurrence of the external cause; Y99.8 Other external cause status
CPT/HCPCS: 72100; 72220; 82962; 96372; 99284; J1885

== ENCOUNTER 2018-05-03 16:15 | Emergency (ER) | payer OTHER ==
[~2018-05-03] VITALS: Ht 172.7 cm; Wt 154.6 kg
[2018-05-03] MEDS ORDERED: ALBUTEROL SULFATE 2.5 MG/0.5 ML NEB SOLUTION NEB ONE (17:15)
[2018-05-03] MEDS ORDERED: IPRATROPIUM BROMIDE 0.5 MG/2.5 ML NEB SOLUTION NEB ONE (17:15)
[2018-05-03] MEDS ORDERED: FUROSEMIDE 40 MG/4 ML VIAL IVP ONE (17:15)
[2018-05-03 17:58] LABS: BASOPHILS % (AUTO) 0.6 % (0.0-2.0); EOSINOPHILS % (AUTO) 1.5 % (1.0-6.0); HEMATOCRIT 35.3 % (36-46); HEMOGLOBIN 11.9 g/dL (12.0-16.0); LYMPHOCYTES # (AUTO) 1.1 K/uL (1.0-4.8); LYMPHOCYTES % (AUTO) 9.4 % (22.0-44.0); MEAN CORPUSCULAR HEMOGLOBIN 26.9 pg (26.0-34.0); MEAN CORPUSCULAR HGB CONC 33.6 G/dL (31.0-37.0); MEAN CORPUSCULAR VOLUME 80 fL (80-100); MONOCYTES # (AUTO) 0.9 K/uL (0.1-1.0); NEUTROPHILS # (AUTO) 9.6 K/uL (1.8-7.7); NEUTROPHILS % (AUTO) 80.5 % (40.0-70.0); PLATELET COUNT (AUTO) 313 K/uL (150-450); RED BLOOD CELL COUNT(AUTO) 4.41 MIL/uL (4.00-5.20); RED CELL DISTRIBUTION WIDTH 18.8 % (11.5-14.5)
[2018-05-03 18:11] LABS: CALCIUM, TOTAL 8.5 mg/dL (8.8-10.5); CREATININE 1.86 mg/dL (0.60-1.30); POTASSIUM 3.5 mmol/L (3.5-5.1)
[2018-05-03 18:16] LABS: ALBUMIN 3.2 g/dL (3.4-5.0); BILIRUBIN,TOTAL 0.3 mg/dL (0.1-1.0); TOTAL PROTEIN, SERUM 7.9 g/dL (6.4-8.2)
[2018-05-03] MEDS ORDERED: INSULIN REGULAR, HUMAN 100 UNITS/ML IVP ONE (18:45)
[2018-05-03 18:58] VITALS: BP 150/76
== END 2018-05-03 19:29 | disposition left against medical advice (07) ==
LOC: EMS 16:23
DX: I11.0 Hypertensive heart disease with heart failure (principal); I50.9 Heart failure, unspecified; E11.65 Type 2 diabetes mellitus with hyperglycemia; R07.9 Chest pain, unspecified; I25.2 Old myocardial infarction; I25.10 Atherosclerotic heart disease of native coronary artery without angina pectoris; J45.909 Unspecified asthma, uncomplicated; Z88.5 Allergy status to narcotic agent; Z88.8 Allergy status to other drugs, medicaments and biological substances; Z79.4 Long term (current) use of insulin
CPT/HCPCS: 36415; 71045; 80053; 83880; 84484; 85025; 93005; 94640; 96374; 96375; 99285; J1815; J1940

== ENCOUNTER 2018-05-07 16:09 | Emergency (ER) | payer OTHER ==
[~2018-05-07] VITALS: Ht 172.7 cm; Wt 154.6 kg
[2018-05-07 18:27] LABS: BASOPHILS % (AUTO) 0.8 % (0.0-2.0); EOSINOPHILS % (AUTO) 2.4 % (1.0-6.0); HEMATOCRIT 34.1 % (36-46); HEMOGLOBIN 11.4 g/dL (12.0-16.0); LYMPHOCYTES # (AUTO) 1.1 K/uL (1.0-4.8); LYMPHOCYTES % (AUTO) 9.5 % (22.0-44.0); MEAN CORPUSCULAR HEMOGLOBIN 26.6 pg (26.0-34.0); MEAN CORPUSCULAR HGB CONC 33.3 G/dL (31.0-37.0); MEAN CORPUSCULAR VOLUME 80 fL (80-100); MONOCYTES # (AUTO) 0.7 K/uL (0.1-1.0); MONOCYTES % (AUTO) 6.5 % (2.0-9.0); NEUTROPHILS # (AUTO) 9.3 K/uL (1.8-7.7); NEUTROPHILS % (AUTO) 80.8 % (40.0-70.0); PLATELET COUNT (AUTO) 352 K/uL (150-450); RED BLOOD CELL COUNT(AUTO) 4.27 MIL/uL (4.00-5.20); RED CELL DISTRIBUTION WIDTH 18.5 % (11.5-14.5)
[2018-05-07] MEDS ORDERED: ONDANSETRON HCL 4 MG/2 ML VIAL IVP ONE (18:30)
[2018-05-07] MEDS ORDERED: HYDROmorphone 2 MG/ML SYRINGE IVP ONE ×2 (18:30→21:00)
[2018-05-07 18:39] LABS: CALCIUM, TOTAL 8.9 mg/dL (8.8-10.5); CREATININE 1.81 mg/dL (0.60-1.30); POTASSIUM 3.7 mmol/L (3.5-5.1)
[2018-05-07 18:47] LABS: ALBUMIN 2.9 g/dL (3.4-5.0); BILIRUBIN,TOTAL 0.3 mg/dL (0.1-1.0); TOTAL PROTEIN, SERUM 7.5 g/dL (6.4-8.2)
[2018-05-07] MEDS ORDERED: AMOX TR/POT CLAV 875 MG/125 MG TABLET PO ONE (21:00)
[2018-05-07 21:54] VITALS: BP 143/83
== END 2018-05-07 21:59 | disposition home or self-care (01) ==
LOC: EMS 16:10
DX: L03.116 Cellulitis of left lower limb (principal); J45.909 Unspecified asthma, uncomplicated; I25.10 Atherosclerotic heart disease of native coronary artery without angina pectoris; E11.9 Type 2 diabetes mellitus without complications; I25.2 Old myocardial infarction; G43.909 Migraine, unspecified, not intractable, without status migrainosus; G89.29 Other chronic pain; Z98.62 Peripheral vascular angioplasty status; Z79.4 Long term (current) use of insulin
CPT/HCPCS: 36415; 71045; 73590; 73630; 80053; 83690; 83880; 84484; 85025; 93005; 93971; 96374; 96375; 96376; 99285; J1170; J2405

== ENCOUNTER 2018-07-04 22:44 | Emergency (ER) | payer OTHER ==
[~2018-07-04] VITALS: Ht 172.7 cm; Wt 167.3 kg
[~2018-07-04 22:44] MED LIST changes: +CARV25 PO; +MUPI15CR12 NASAL; +PRED20 PO; +RANO500T3 PO
[2018-07-04 23:04] LABS: GLUCOSE,POINT OF CARE 315 MG/DL (70-110)
[2018-07-04] MEDS ORDERED: INSLAN SQ ×2 (23:08)
[2018-07-04] MEDS ORDERED: KETOROLAC TROMETHAMINE 30 MG/ML VIAL IM ONE (23:30)
[2018-07-05 01:00] VITALS: BP 151/73
== END 2018-07-05 01:57 | disposition home or self-care (01) ==
LOC: EMS 22:45
DX: S83.91XA Sprain of unspecified site of right knee, initial encounter (principal); J45.909 Unspecified asthma, uncomplicated; I11.0 Hypertensive heart disease with heart failure; I50.9 Heart failure, unspecified; I25.2 Old myocardial infarction; G43.909 Migraine, unspecified, not intractable, without status migrainosus; E11.9 Type 2 diabetes mellitus without complications; G89.29 Other chronic pain; Z98.62 Peripheral vascular angioplasty status; Z79.4 Long term (current) use of insulin; Z79.82 Long term (current) use of aspirin; Z79.899 Other long term (current) drug therapy; Z88.5 Allergy status to narcotic agent; Z88.8 Allergy status to other drugs, medicaments and biological substances; W01.0XXA Fall on same level from slipping, tripping and stumbling without subsequent striking against object, initial encounter; Y93.89 Activity, other specified; Y92.89 Other specified places as the place of occurrence of the external cause; Y99.8 Other external cause status
CPT/HCPCS: 29505; 73562; 82962; 96372; 99284; J1885